=== PATIENT | male | born 1990 | race African-American/Black ===

== ENCOUNTER 2018-01-14 15:51 | Emergency (ER) | payer OTHER ==
[~2018-01-14] VITALS: Ht 172.7 cm; Wt 77.1 kg
[2018-01-14 16:36] VITALS: BP 128/65
--- NOTE | 2018-01-15 12:56 | EKG ---
[place] [address] ELECTROCARDIOGRAM REPORT Name: SIMONEAGATHA RDZ III Room: [facility]#: [id number] Admission: 01/14/18 Attend Phys: Discharge: 01/14/18 Date of : [birth year] Report #: [id number] THIS REPORT FOR: //name// [facility] ED Test Date: 2018-01-14 Test Time: 15:58:19 Pat Name: AGATHA NICHOLS Department: Room: Gender: M Facility Planner: SINDY : 1990 Requested By: Adarsh Mireles Order Number: [id number] MD: Miguel Blackmon Measurements Intervals [place] Rate: 66 P: 39 SD: 128 QRS: 60 QRSD: 87 T: -2 QT: 380 QTc: 399 Interpretive Statements Sinus rhythm No previous ECG available for comparison Electronically Signed On 01-15-2018 12:55:58 CDT by Miguel Blackmon [email or web address] <ELECTRONICALLY SIGNED> By: Miguel Blackmon MD, [facility] 01/15/18 [id number] Miguel Blackmon MD, FACC /EPI
== END 2018-01-14 16:54 | disposition home or self-care (01) ==
LOC: M.ERS 15:51
DX: R07.89 Other chest pain (principal)